=== PATIENT | female | born 1985 | race Caucasian/White ===

== ENCOUNTER → 2018-07-19 | Outpatient (REF) ==
[~2018-07-19] MED LIST: AMOXICILLIN/CL875 MG PO; AUGMENTIN875TAB PO; BENZONATATE200 MG PO; CALNA PO; CETIRIZINE10 MG PO; CIPROFLOXACN500 MG PO; CYANOCOBALAM1000 MCG IJ; CYANOCOBALAM1000 MCG IM; FERROUS SULF325 M1 PO; FIORICET PO; LORTAB 5 OR; MEDDOSEPAK PO; MOTRIN800 MG PO; NAPROSYN500 MG PO; PRENATA2 OR; PROAIR HFA IN; PSEUDOEPHEDR30 MG PO; TRAMADOL HCL50 MG PO; TUBERSOL5 MG/0.1 M ID; VITAMIN B-121000 MCG PO; WELLBUTRIN SR150 MG OR; ZOFRAN ODT4 MG PO
[2018-07-19 08:51] LABS: CHOLESTEROL HDL RATIO 3.9 (<4.4 (CALC))
== END | disposition home or self-care (01) | DRG 951 ==
LOC: LAB 06:59
PROVIDERS: ATTEND Family Medicine
DX: Z02.6 Encounter for examination for insurance purposes (principal)

== ENCOUNTER 2020-05-02 07:35 | Emergency (ER) | payer OTHER ==
[~2020-05-02] VITALS: Ht 170.2 cm; Wt 95.5 kg
[2020-05-02 08:47] LABS: HEMATOCRIT 48.6 % (37.0-47.0); IMMATURE GRANULOCYTES 0.5 % (0.0-5.0); MEAN CELL VOLUME 89.2 fL CALC (80.0-100.0); MEAN CORPUSCULAR HGB CONC 32.5 g/dL CAL (32.0-36.0); NEUT# 18.11 thou/uL (2.00-7.15); RED BLOOD COUNT 5.45 mill/uL (4.20-5.60)
[2020-05-02] MEDS ORDERED: MECLIZINE25 MG PO (08:48)
[2020-05-02 08:54] LABS: URINE BILIRUBIN - DIPSTICK NEGATIVE (NEGATIVE); URINE BLOOD DIPSTICK NEGATIVE (NEGATIVE); URINE CLARITY CLEAR; URINE COLOR YELLOW; URINE GLUCOSE - DIPSTICK NEGATIVE (NEGATIVE); URINE KETONE NEGATIVE (NEGATIVE); URINE LEUK ESTERASE NEGATIVE (Negative); URINE NITRITE - DIPSTICK NEGATIVE (Negative); URINE PROTEIN - DIPSTICK NEGATIVE (NEG-TRACE); URINE SPECIFIC GRAVITY >=1.030; URINE UROBILINOGEN - DIPSTICK 0.2 E.U./dL (0.2)
[2020-05-02 08:55] LABS: HEMOGLOBIN 15.8 g/dl (12.0-16.0)
[2020-05-02 09:00] LABS: HCG SERUM/URINE (NEG/POS) NEGATIVE (NEGATIVE)
[2020-05-02 09:05] LABS: ALBUMIN 5.1 g/dL (3.2-5.0); ALKALINE PHOSPHATASE 80 u/l (38-126); ANION GAP 18 (6-22 (CALC)); BILIRUBIN, TOTAL 0.5 mg/dL (0.0-1.4); BUN 20 mg/dL (7-17); BUN/CREATININE RATIO 22 (12-20 (CALC)); CARBON DIOXIDE 22 mmol/l (22-30); CHLORIDE 106 mmol/l (95-108); CREATININE 0.9 mg/dL (0.5-1.0); GFR > 60 ML/MIN (>=60 (CALC)); GFR FOR AFR.AMER. > 60 ML/MIN (>=60 (CALC)); LIPASE 90 u/l (23-300); POTASSIUM 4.4 mmol/l (3.5-5.1); SGOT/AST 27 u/l (14-36); SODIUM 140 mmol/l (137-146)
[2020-05-02] MEDS ORDERED: ZOFRAN4 MG/TAB PO (10:49)
[2020-05-02] MEDS ORDERED: DICYCLOMINE20 MG PO (10:49)
[2020-05-02 11:17] VITALS: BP 124/72
== END 2020-05-02 12:08 | disposition home or self-care (01) | DRG 392 ==
LOC: ED 07:35
PROVIDERS: Student in an Organized Health Care Education/Training Program
DX: K52.9 Noninfective gastroenteritis and colitis, unspecified (principal); E86.0 Dehydration; Z86.19 Personal history of other infectious and parasitic diseases; Z20.828 Contact with and (suspected) exposure to other viral communicable diseases
CPT/HCPCS: Q9967